=== PATIENT | male | born 1965 | race Caucasian/White ===

== ENCOUNTER 2017-07-11 14:46 | Emergency (ER) | payer BC ==
[2017-07-11] MEDS: LIDOCAINE 1%/EPI (MDV) 50 ML INJ INJ (15:38)
[2017-07-11] MEDS: DIPHTH/TET/ACEL PERTUSS (ADULT) 0.5 ML VIAL IM* (15:38)
== END 2017-07-11 16:28 | disposition home or self-care (01) ==
LOC: FTE 14:46
DX: S01.01XA Laceration without foreign body of scalp, initial encounter (principal); W01.0XXA Fall on same level from slipping, tripping and stumbling without subsequent striking against object, initial encounter; Y92.9 Unspecified place or not applicable; Z23 Encounter for immunization
CPT/HCPCS: 12002; 90471; 90715; 99284-25

== ENCOUNTER 2017-07-13 13:46 | Emergency (ER) | payer BC | END 2017-07-13 14:06 | disposition home or self-care (01) | LOC: E/R 13:46 | DX: Z48.01 Encounter for change or removal of surgical wound dressing (principal) | CPT/HCPCS: 99281 ==

== ENCOUNTER 2017-07-18 15:53 | Emergency (ER) | payer BC | END 2017-07-18 16:10 | disposition home or self-care (01) | LOC: E/R 16:10 | DX: Z48.02 Encounter for removal of sutures (principal) | CPT/HCPCS: 99281 ==